=== PATIENT | male | born 2000 | race African-American/Black ===

== ENCOUNTER 2022-02-28 18:38 | Emergency (ER) | payer SELFPAY ==
[~2022-02-28] VITALS: Ht 175.3 cm; Wt 66.2 kg
[2022-02-28 18:48] VITALS: BP 141/73
--- NOTE | 2022-02-28 19:26 | NUR ---
AZUL DOHERTY TO ER BED 11
[2022-02-28] MEDS ORDERED: NEOMYCIN/POLYMYXIN/BACITRACIN 0.9 GM/1 PKT TP ONE (19:40)
[2022-02-28] MEDS ORDERED: LIDOCAINE 2% 1000 MG/50 ML VIAL INJ ONE (19:40)
--- NOTE | 2022-02-28 19:56 | NUR ---
ER MD AT BEDSIDE FOR EXAMINATION
[2022-02-28] MEDS ORDERED: ACET-10509 PO (20:03)
--- NOTE | 2022-02-28 20:19 | NUR ---
Patient discharged. Written and verbal after care instructions given and explained. Patient alert, oriented and verbalized understanding of instructions. Ambulatory with steady gait. All questions addressed prior to discharge. ID band removed. Patient advised to follow up with PMD. Rx of tylenol extra strength tab given. Patient educated on indication of medication including possible reaction and side effects. Opportunity to ask questions provided and answered.
== END 2022-02-28 20:19 | disposition home or self-care (01) ==
LOC: MED 18:38
DX: S01.01XA Laceration without foreign body of scalp, initial encounter (principal); R03.0 Elevated blood-pressure reading, without diagnosis of hypertension; Z79.899 Other long term (current) drug therapy; W51.XXXA Accidental striking against or bumped into by another person, initial encounter; Y93.66 Activity, soccer; Y92.89 Other specified places as the place of occurrence of the external cause; Y99.8 Other external cause status
CPT/HCPCS: 99282; J2001